=== PATIENT | female | born 1980 | race African-American/Black ===

== ENCOUNTER 2025-08-28 09:31 | Emergency (ER) | payer OTHER ==
[2025-08-28] MEDS ORDERED: Ketorolac Tromethamine 30 MG (1 mL) VIAL ONE (10:19)
[2025-08-28] MEDS ORDERED: Ondansetron PF 4 MG/2 ML Vial ONE (10:19)
[2025-08-28] MEDS ORDERED: Acetaminophen 500 MG TAB ONE (10:20)
[2025-08-28 10:46] LABS: #Basophils 0.04 10x3/uL (0.0-0.2); #Eosinophils 0.07 10x3/uL (0.0-0.5); #Monocytes 0.42 10x3/uL (0.0-1.1); #Neutrophils 4.96 10x3/uL (1.5-8.4); %Basophils 0.5 % (0.0-2.0); %Eosinophils 0.9 % (0.0-6.0); %Lymphocytes 27.7 % (18.0-47.0); %Monocytes 5.5 % (0.0-10.0); %Neutrophils 65.0 % (40.0-75.0); Hematocrit 35.0 % (34.9-44.5); Hemoglobin 11.1 g/dL (12.0-15.5); Mean Corpuscular Hemoglobin 24.6 pg (27.0-33.0); Mean Corpuscular Volume 77.6 fL (81.6-98.3); Platelet Count 357 10x3/uL (150-450); Red Blood Cell (RBC) Count 4.51 10x6/uL (3.90-5.03); White Blood Cell (WBC) Count 7.63 10x3/uL (3.5-10.5)
[2025-08-28 11:00] LABS: ALT (SGPT) 59 U/L (Less than 34); AST (SGOT) 42 U/L (11-34); Albumin 3.8 g/dL (3.1-4.5); Alkaline Phosphatase 77 U/L (40-110); Anion Gap 11 mmol/L (10-20); BUN (Urea Nitrogen) 8 mg/dL (7.0-18.7); Bilirubin, Total 0.5 mg/dL (0.3-1.2); Calc. Creatinine Clearance 0 mL/min (70-130); Calcium 9.2 mg/dL (7.8-10.44); Carbon Dioxide 25 mmol/L (22-29); Chloride 103 mmol/L (98-107); Globulin 4.1 g/dL (2.4-3.5); Glucose 95 mg/dL (70-105); Lipase 28 U/L (8-78); Magnesium 1.7 mg/dL (1.6-2.6); Potassium 3.9 mmol/L (3.5-5.1); Sodium 135 mmol/L (136-145)
== END 2025-08-28 11:35 | disposition home or self-care (01) ==
LOC: CSHERS 09:31
DX: G44.209 Tension-type headache, unspecified, not intractable (principal)
CPT/HCPCS: 71045; 80053; 83690; 83735; 85025; 87428; 96374; 96375; J1885; J2405